=== PATIENT | female | born 1955 | race Caucasian/White ===

== ENCOUNTER → 2016-11-15 | Outpatient (REF) | payer OTHER | LOC: M LAB REF 11:25 | PROVIDERS: ATTEND Nurse Practitioner Family | DX: J02.9 Acute pharyngitis, unspecified (principal) ==

== ENCOUNTER → 2017-06-25 | Outpatient (CLI) | payer OTHER ==
[2017-06-25 16:18] LABS: BLOOD UREA NITROGEN 17 MG/DL (7-18); CREATININE FOR GFR 0.76 MG/DL (0.55-1.02); GLOMERULAR FILTRATION RATE > 60.0 (>45)
== END ==
LOC: M LABDRAW1 14:26
PROVIDERS: ATTEND Orthopaedic Surgery
DX: M79.652 Pain in left thigh (principal)

== ENCOUNTER 2019-05-05 07:27 | Day surgery (SDC) | payer OTHER ==
[~2019-05-05] VITALS: Ht 160 cm; Wt 60.7 kg
[~2019-05-05 07:27] MED LIST: ALPR0.25 PO; DOXY100C37 PO; LEVO75TA4 PO; NS 1,000 ML IV ONE
[2019-05-05] MEDS ORDERED: LIDOCAINE 2% INJ 100 MG/5 ML SDV (FOR ANES.) As Ordered ONE (08:08)
[2019-05-05] MEDS ORDERED: PROPOFOL 200 MG/20 ML VIAL As Ordered ONE (08:08)
--- NOTE | 2019-05-05 08:49 | ROOR ---
Patient Name: Joslyn Winston Procedure Date: 05/05/2019 8:26 AM Date of : 1955 Age: 63 Room: [facility] Gender: Female Note Status: Finalized Procedure: Total Colonoscopy to Cecum Indications: Screening for colorectal malignant neoplasm Providers: Daniel Sharma MD Referring MD: Mary MCDOWELL MD Requesting Provider: Medicines: Monitored Anesthesia Care Complications: No immediate complications. Procedure: Pre-Anesthesia Assessment: - The heart rate, respiratory rate, oxygen saturations, blood pressure, adequacy of pulmonary ventilation, and response to care were monitored throughout the procedure. The Colonoscope was introduced through the anus and advanced to the cecum, identified by appendiceal orifice and ileocecal valve. The colonoscopy was performed without difficulty. The patient tolerated the procedure well. The quality of the bowel preparation was excellent. Findings: The perianal and digital rectal examinations were normal. Non-bleeding internal hemorrhoids were found during retroflexion. The hemorrhoids were small and Grade I (internal hemorrhoids that do not prolapse). Scattered small-mouthed diverticula were found in the recto-sigmoid colon and sigmoid colon. The exam was otherwise without abnormality on direct and retroflexion views. Impression: - Non-bleeding internal hemorrhoids. - Diverticulosis in the recto-sigmoid colon and in the sigmoid colon. - The examination was otherwise normal on direct and retroflexion views. - No specimens collected. - The exam was otherwise normal to the cecum. Recommendation: - Patient has a contact number available for emergencies. The signs and symptoms of potential delayed complications were discussed with the patient. Return to normal activities tomorrow. Written discharge instructions were provided to the patient. - High fiber diet. - Discharge patient to home. - Continue present medications. - Repeat colonoscopy in 10 years for screening purposes. - Return to referring physician. - The findings and recommendations were discussed with the patient's family. Daniel Sharma MD Daniel Sharma MD 05/05/2019 8:48:40 AM Electronically signed by Daniel Sharma MD Number of Addenda: 0 Note Initiated On: 05/05/2019 8:26 AM Estimated Blood Loss: Estimated blood loss: none.
[2019-05-05 09:07] VITALS: BP 120/73
== END 2019-05-05 09:30 | disposition home or self-care (01) ==
LOC: M OPP 07:27
PROVIDERS: ATTEND Internal Medicine Gastroenterology
DX: Z12.11 Encounter for screening for malignant neoplasm of colon (principal); K64.0 First degree hemorrhoids; K57.30 Diverticulosis of large intestine without perforation or abscess without bleeding; E16.2 Hypoglycemia, unspecified; F41.9 Anxiety disorder, unspecified; Z78.0 Asymptomatic menopausal state; E03.9 Hypothyroidism, unspecified; Z88.2 Allergy status to sulfonamides; Z79.899 Other long term (current) drug therapy

== ENCOUNTER → 2020-09-07 | Outpatient (REF) | payer OTHER ==
[~2020-09-07] MED LIST changes: -NS 1,000 ML IV ONE
== END ==
LOC: M SFHCPLAZ 16:49
PROVIDERS: ATTEND Physician Assistant
DX: R21 Rash and other nonspecific skin eruption (principal)

== ENCOUNTER 2021-01-02 14:57 | Emergency (ER) | payer OTHER ==
[~2021-01-02] VITALS: Ht 160 cm; Wt 62.4 kg
[2021-01-02] MEDS ORDERED: NEOSPORIN OINT 0.9 GM PKT TOP ONE (17:05)
[2021-01-02 17:11] VITALS: BP 129/68
== END 2021-01-02 17:13 | disposition home or self-care (01) ==
LOC: M ED 14:57
DX: T23.202A Burn of second degree of left hand, unspecified site, initial encounter (principal); X12.XXXA Contact with other hot fluids, initial encounter; T31.0 Burns involving less than 10% of body surface; E03.9 Hypothyroidism, unspecified; Z78.0 Asymptomatic menopausal state; Z88.1 Allergy status to other antibiotic agents; Z88.2 Allergy status to sulfonamides

== ENCOUNTER → 2021-03-02 | Outpatient (CLI) | payer OTHER ==
[~2021-03-02] MED LIST changes: -DOXY100C37 PO; +DOXY1CAP62 PO
--- NOTE | 2021-03-02 15:16 | REP ---
INDICATION: Neck pain and pressure. COMPARISON: None TECHNIQUE: Seven view cervical spine series, including flexion and extension lateral views, were obtained. FINDINGS: There is degenerative disc disease, C 5-6 and C 6-7, with narrowing of the intervertebral disc spaces and marginal osteophytes. There is 2 mm of degenerative retrolisthesis of C 4 on C 5 in extension, which reduces to 2 mm, in flection. The vertebral bodies are normal. The perivertebral soft tissues are normal. IMPRESSION: 1. Degenerative disc disease, C5-6 and C6-7. 2. Spondylosis with degenerative grade 1 retrolisthesis of C4 on C5 which demonstrates instability with flexion and extension. <Electronically signed by Darinel Zavala > 03/02/21 [id number]
== END ==
LOC: M WUC 13:22
PROVIDERS: ATTEND Internal Medicine
DX: M54.2 Cervicalgia (principal)

== ENCOUNTER → 2021-03-17 | Outpatient (CLI) | payer OTHER ==
--- NOTE | 2021-03-17 16:13 | REPVR ---
PROCEDURE INFORMATION: Exam: MR Cervical Spine Without Contrast Exam date and time: 03/17/2021 1:40 PM Age: 65 years old Clinical indication: Pain; Cervicalgia; Additional info: Progressive supine throat pressure TECHNIQUE: Imaging protocol: Multiplanar magnetic resonance images of the cervical spine without contrast. COMPARISON: CR SPINE CERVICAL COMPL 03/02/2021 1:37 PM FINDINGS: Vertebrae: 2 mm of degenerative retrolisthesis of C6 on C7. No acute fracture seen. Spinal cord: Normal signal. No cord compression. There is disc desiccation throughout. Disc height loss and spondylosis is [id number] at C6-C7, mild at C5-C6. There is a small Schmorl's node of the T2 superior endplate. C2-C3: Mild right facet arthropathy. No stenoses. C3-C4: Mild right facet arthropathy. No stenoses. C4-C5: Slight disc bulge and ligamentum flavum buckling. The central spinal canal remains patent. Mild uncovertebral and facet arthropathy without contribution to foraminal stenoses. C5-C6: Mild disc osteophyte complex does not contribute to central spinal canal stenosis. Uncovertebral and facet arthropathy causing mild left neural foraminal stenosis. The right neural foramen is patent. C6-C7: Retrolisthesis, disc osteophyte complex and ligamentum flavum buckling causing mild central spinal canal stenosis. Uncovertebral and facet arthropathy causing severe right and mild left neural foraminal stenoses. C7-T1: Omcz-yx-[id number] facet arthropathy. No stenoses. Soft tissues: Unremarkable. Vertebral arteries: Expected flow voids in the vertebral arteries. Other findings: There is relative asymmetric opacification of the right vallecular space, image 9 series 1, image 23 series 501. IMPRESSION: 1. No acute findings identified. 2. Asymmetric opacification of the right vallecular space of uncertain significance and chronicity. This could reflect process such as asymmetric tonsillar enlargement or a minor salivary gland neoplasm. Recommend ENT consultation for direct visualization. 3. Mild central spinal canal stenosis at C6-C7. Severe right neural foraminal stenosis. Electronically signed by: Maryann Jiménez On 03/17/2021 16:12:46 PM
== END ==
LOC: M RAD 12:32
PROVIDERS: ATTEND Internal Medicine
DX: M54.12 Radiculopathy, cervical region (principal)

== ENCOUNTER → 2021-04-26 | Outpatient (CLI) | payer OTHER ==
[~2021-04-26] MED LIST changes: +E-Z-GAS II EFFERVESCENT PACKET (SODIUM BICARB./CITRIC ACID/SIMETHICONE) As Ordered ONE; +E-Z-HD 98% w/w 340GM SUSP BTL As Ordered ONE; +E-Z-PAQUE 96% w/w SUSP 176GM BTL As Ordered ONE
--- NOTE | 2021-04-26 16:31 | REP ---
INDICATION: GERD. COMPARISON: None. TECHNIQUE: This procedure was performed under the direct supervision of Dr. Quevedo. Images were reviewed with Dr. Quevedo. Liquid barium and gas producing granules were given in the erect position as well as liquid barium in the prone oblique positions in order to perform a double contrast esophagram examination. A combination of fluoroscopy, spot films and last image hold technology was utilized. 0.7 minutes of fluoro time was utilized for this procedure. FINDINGS: A single view PA chest x-ray is submitted as a resident engineer film. The superior mediastinal structures are midline. The heart size is within normal limits. The lungs are clear. The oral and pharyngeal stages of deglutition are unremarkable. Esophageal transport is prompt and efficient and there is no esophagitis, stricture, mucosal ring, or hiatal hernia.Gastroesophageal reflux is not demonstrated on this examination IMPRESSION: Essentially unremarkable double-contrast esophagram examination. <Electronically signed by Kyle Sifuentes > 04/26/21 [id number] <Electronically signed by Mukund Quevedo > 04/26/21 [id number]
== END ==
LOC: M RAD 10:10
PROVIDERS: ATTEND Otolaryngology
DX: K21.9 Gastro-esophageal reflux disease without esophagitis (principal)

== ENCOUNTER → 2021-07-16 | Outpatient (CLI) | payer OTHER ==
[~2021-07-16] MED LIST changes: +DOXY-443 PO; -DOXY1CAP62 PO; -E-Z-GAS II EFFERVESCENT PACKET (SODIUM BICARB./CITRIC ACID/SIMETHICONE) As Ordered ONE; -E-Z-HD 98% w/w 340GM SUSP BTL As Ordered ONE; -E-Z-PAQUE 96% w/w SUSP 176GM BTL As Ordered ONE
== END ==
LOC: M WHC 14:45
PROVIDERS: ATTEND Internal Medicine
DX: Z12.31 Encounter for screening mammogram for malignant neoplasm of breast (principal); M81.0 Age-related osteoporosis without current pathological fracture

== ENCOUNTER → 2022-03-01 | Outpatient (CLI) | payer MEDICARE | LOC: M WUC 10:38 | PROVIDERS: ATTEND Internal Medicine | DX: M51.36 Other intervertebral disc degeneration, lumbar region (principal); M51.37 Other intervertebral disc degeneration, lumbosacral region; M16.12 Unilateral primary osteoarthritis, left hip ==

== ENCOUNTER → 2022-05-02 | Outpatient (CLI) | payer MEDICAID, MEDICARE ==
[2022-05-02 18:26] LABS: BLOOD UREA NITROGEN 22 MG/DL (7-18); CREATININE FOR GFR 0.86 MG/DL (0.55-1.30); GLOMERULAR FILTRATION RATE > 60.0 (>45)
== END ==
LOC: M LAB 16:48
PROVIDERS: ATTEND Orthopaedic Surgery
DX: M16.12 Unilateral primary osteoarthritis, left hip (principal)

== ENCOUNTER → 2022-08-06 | Outpatient (CLI) | payer MEDICARE | LOC: M SLEEP 20:00 | PROVIDERS: ATTEND Nurse Practitioner Family | DX: R40.0 Somnolence (principal) ==

== ENCOUNTER → 2022-10-14 | Outpatient (CLI) | payer MEDICARE | LOC: M WHC 08:15 | PROVIDERS: ATTEND Internal Medicine | DX: Z12.31 Encounter for screening mammogram for malignant neoplasm of breast (principal) ==

== ENCOUNTER → 2023-01-06 | Outpatient (REF) | LOC: M LAB 09:02 | PROVIDERS: ATTEND Nurse Practitioner Adult Health | DX: Z11.52 Encounter for screening for COVID-19 (principal) ==

== ENCOUNTER → 2023-10-17 | Outpatient (CLI) | payer MEDICARE, OTHER | LOC: M WHC 10:45 | PROVIDERS: ATTEND Internal Medicine | DX: Z12.31 Encounter for screening mammogram for malignant neoplasm of breast (principal); M85.88 Other specified disorders of bone density and structure, other site; R92.333 Mammographic heterogeneous density, bilateral breasts ==